=== PATIENT | female | born 2000 | race Caucasian/White ===

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

== ENCOUNTER 2022-07-21 22:44 | Emergency (ER) | payer OTHER ==
[~2022-07-21] VITALS: Ht 175.3 cm; Wt 126.1 kg
[2022-07-21 23:25] VITALS: BP 134/77
--- NOTE | 2022-07-22 00:56 | NUR ---
PT TO BED #1
--- NOTE | 2022-07-22 01:00 | NUR ---
PATIENT WITH COMPLAINTS OF SORE THROAT X2 DAYS AND FEVER. REPORTS COVID INFECTION APPROXIMATELY 3 WEEKS AGO
[2022-07-22] MEDS ORDERED: HYDROcodone/APAP 5/325 MG 1 TAB TAB PO ONE (01:30)
[2022-07-22] MEDS ORDERED: ACET-10509 PO (02:26)
[2022-07-22] MEDS ORDERED: NAPR-54 PO (02:26)
[2022-07-22 02:48] VITALS: BP 134/77
--- NOTE | 2022-07-22 02:48 | NUR ---
Patient discharged with v/s stable. Written and verbal after care instructions given and explained. Patient alert, oriented and verbalized understanding of instructions. Ambulatory with steady gait. All questions addressed prior to discharge. ID band removed. Patient advised to follow up with PMD. Rx of TYLENOL EXTRA STRENGTH, NAPROXEN given. Patient educated on indication of medication including possible reaction and side effects. Opportunity to ask questions provided and answered. DX: UPPER RESPIRATORY INFECTION, ADULT, PHARYNGITIS
== END 2022-07-22 02:48 | disposition home or self-care (01) ==
LOC: MED 22:44
DX: J06.9 Acute upper respiratory infection, unspecified (principal); Z20.822 Contact with and (suspected) exposure to COVID-19; J45.909 Unspecified asthma, uncomplicated; Z79.899 Other long term (current) drug therapy
CPT/HCPCS: 99283